=== PATIENT | female | born 1995 | race Caucasian/White ===

== ENCOUNTER 2022-06-29 11:01 | Emergency (ER) | payer OTHER ==
[~2022-06-29] VITALS: Ht 170.2 cm; Wt 74.4 kg
[2022-06-29] MEDS ORDERED: METOCLOPRAMIDE INJ 10MG/2ML VIAL IV ONE (13:20)
[2022-06-29] MEDS ORDERED: NS 1,000 ML IV ONE (13:20)
[2022-06-29] MEDS ORDERED: diphenhydrAMINE 50MG/ML VIAL IV ONE (13:20)
[2022-06-29] MEDS ORDERED: KETOROLAC 30 MG/ML 1ML VIAL IV ONE (14:45)
[2022-06-29] MEDS ORDERED: RIZA10TA64 PO (15:59)
[2022-06-29 16:09] VITALS: BP 120/72
== END 2022-06-29 16:20 | disposition home or self-care (01) ==
LOC: M ED 11:01
DX: G43.909 Migraine, unspecified, not intractable, without status migrainosus (principal)
CPT/HCPCS: 70450; 84702; 96374; 96375; 99284; J1200; J1885; J2765

== ENCOUNTER → 2023-02-09 | Outpatient (CLI) | payer OTHER ==
[~2023-02-09] MED LIST: RIZA10TA64 PO
[2023-02-09 16:12] LABS: HEMOGLOBIN 12.8 g/dl (12.0-15.5); MEAN CORPUSCULAR HEMOGLOBIN 31.7 pg (27.0-33.0); MEAN CORPUSCULAR HGB CONC 34.6 g/dl (32.0-36.5); MEAN CORPUSCULAR VOLUME 91.6 fl (80.0-96.0); PLATELET COUNT, AUTOMATED 197 10^3/uL (150-450); RED BLOOD COUNT 4.04 10^6/uL (4.00-5.40); WHITE BLOOD COUNT 8.5 10^3/uL (4.0-10.0)
[2023-02-09 17:29] LABS: CHLAMYDIA DNA AMPLIFICATION NEGATIVE (NEGATIVE); GC DNA AMPLIFICATION NEGATIVE (NEGATIVE)
[2023-02-09 17:50] LABS: HIV 1&2 SCREEN NEGATIVE (NEGATIVE)
[2023-02-09 17:56] LABS: HEPATITIS C VIRUS ABY INDEX 0.06 INDEX (<0.8)
== END ==
LOC: M PLALAB 14:32
PROVIDERS: ATTEND Advanced Practice Midwife
DX: Z34.01 Encounter for supervision of normal first pregnancy, first trimester (principal)

== ENCOUNTER → 2023-04-04 | Outpatient (CLI) | payer OTHER | LOC: M RAD 09:35 | PROVIDERS: ATTEND Advanced Practice Midwife | DX: Z34.02 Encounter for supervision of normal first pregnancy, second trimester (principal) ==

== ENCOUNTER → 2023-05-18 | Outpatient (CLI) | payer OTHER | LOC: M WHC 08:36 | PROVIDERS: ATTEND Advanced Practice Midwife | DX: Z34.02 Encounter for supervision of normal first pregnancy, second trimester (principal) ==

== ENCOUNTER → 2023-05-25 | Outpatient (CLI) | payer OTHER ==
[2023-05-25 19:00] LABS: HEMATOCRIT 33.8 % (36.0-47.0); HEMOGLOBIN 11.7 g/dl (12.0-15.5); MEAN CORPUSCULAR HEMOGLOBIN 32.4 pg (27.0-33.0); MEAN CORPUSCULAR HGB CONC 34.6 g/dl (32.0-36.5); MEAN CORPUSCULAR VOLUME 93.6 fl (80.0-96.0); PLATELET COUNT, AUTOMATED 170 10^3/uL (150-450); RED BLOOD COUNT 3.61 10^6/uL (4.00-5.40); WHITE BLOOD COUNT 10.3 10^3/uL (4.0-10.0)
== END ==
LOC: M PLALAB 14:39
PROVIDERS: ATTEND Advanced Practice Midwife
DX: Z34.02 Encounter for supervision of normal first pregnancy, second trimester (principal)

== ENCOUNTER → 2023-08-02 | Outpatient (REF) | payer OTHER | LOC: M SFHCWAGY 14:58 | PROVIDERS: ATTEND Obstetrics & Gynecology | DX: Z36.89 Encounter for other specified antenatal screening (principal); Z3A.36 36 weeks gestation of pregnancy ==

== ENCOUNTER 2023-08-23 07:36 | Inpatient (IN) | payer OTHER ==
[2023-08-23] VITALS (26 sets, daily range): BP systolic 109–153; BP diastolic 59–95; O2SAT 99
[~2023-08-23] VITALS: Ht 170.2 cm; Wt 94.7 kg
[2023-08-23] MEDS ORDERED: PRENTAB9 PO (08:00)
[2023-08-23] MEDS ORDERED: ACET325C5 PO (08:00)
[2023-08-23] MEDS ORDERED: HOME MED LIST COMPLETE! XX SCH (08:15)
[2023-08-23 08:42] LABS: HEMATOCRIT 35.2 % (36.0-47.0); HEMOGLOBIN 12.4 g/dl (12.0-15.5); MEAN CORPUSCULAR HEMOGLOBIN 29.9 pg (27.0-33.0); MEAN CORPUSCULAR HGB CONC 35.2 g/dl (32.0-36.5); MEAN CORPUSCULAR VOLUME 84.8 fl (80.0-96.0); PLATELET COUNT, AUTOMATED 244 10^3/uL (150-450); RED BLOOD COUNT 4.15 10^6/uL (4.00-5.40); WHITE BLOOD COUNT 14.6 10^3/uL (4.0-10.0)
[2023-08-23] MEDS ORDERED: LACTATED RINGER'S 1000 ML IV STA (09:11)
[2023-08-23] MEDS ORDERED: METHYLERGONOVINE MALEATE 0.2MG/ML 1ML VIAL IM PRN (09:15)
[2023-08-23] MEDS ORDERED: TRANEXAMIC ACID INJection 1,000 MG in NS 100 ML IV PRN (09:15)
[2023-08-23] MEDS ORDERED: OXYTOCIN DRIP 30 UNITS in IV 1 EA IV PRN (09:15)
[2023-08-23] MEDS ORDERED: OXYTOCIN INJ 10UNITS/ML 1ML VIAL IM PRN (09:15)
[2023-08-23] MEDS ORDERED: LIDOCAINE 1% MDV 20ML VIAL INFIL PRN (09:15)
[2023-08-23] MEDS ORDERED: CARBOPROST TROMETHAMINE 250 MCG/ML AMP IM PRN (09:15)
[2023-08-23 09:40] LABS: HEPATITIS C VIRUS ABY INDEX < 0.02 INDEX (<0.8)
[2023-08-23] MEDS ORDERED: OXYTOCIN DRIP 30 UNITS in IV 1 EA IV SCH (10:55)
[2023-08-23] MEDS ORDERED: LR 1,000 ML IV SCH (10:55)
[2023-08-23] MEDS ORDERED: ePHEDrine SULFATE 25 MG/5 ML(5MG/ML) SYRINGE IVP PRN (14:25)
[2023-08-23] MEDS ORDERED: ONDANSETRON 4MG 2ML VIAL IV PRN (14:25)
[2023-08-23] MEDS ORDERED: LR 500 ML IV PRN (14:25)
[2023-08-23] MEDS ORDERED: diphenhydrAMINE 50MG/ML VIAL IV PRN (14:25)
[2023-08-23] MEDS ORDERED: FENTANYL/ROPIVACAINE/NACL BAG 100 ML EPIDURAL SCH (14:25)
[2023-08-23] MEDS ORDERED: NALOXONE INJ 0.4MG/1ML VIAL IV PRN (14:25)
[2023-08-23] MEDS ORDERED: EPIDURAL/PCA KEYS XX PRN (14:25)
[2023-08-23] MEDS ORDERED: IBUPROFEN 600MG TAB PO PRN (18:05)
[2023-08-23] MEDS ORDERED: METHYLERGONOVINE MALEATE 0.2 MG TAB PO PRN (18:05)
[2023-08-23] MEDS ORDERED: ACETAMINOPHEN TAB 650MG DOSE (2X325MG) PO PRN (18:05)
[2023-08-23] MEDS ORDERED: DOCUSATE SODIUM 100MG CAPSULE PO PRN (18:05)
[2023-08-23] MEDS ORDERED: ACETAMINOPHEN 500 MG TAB PO PRN (18:05)
[2023-08-23] MEDS ORDERED: RHO(D) IMMUNE GLOBULIN/MALTOSE 500MCG(2500IU)/2.2ML VIAL (WINRHO) IM SCH (18:05)
[2023-08-23] MEDS: DIBUCAINE 1% OINTMENT 30GM TOP PRN (21:46)
[2023-08-24 06:00] VITALS: BP 104/62; O2SAT 96
[2023-08-24] MEDS: PRENATAL VITAMINS CHEWABLE TABLET PO SCH (08:25)
[2023-08-24] MEDS: IBUPROFEN 800 MG TAB PO PRN (08:26)
[2023-08-24 18:00] VITALS: BP 124/72; O2SAT 98
[2023-08-25 06:00] VITALS: BP 115/64; O2SAT 99
[2023-08-25] MEDS: MEASLES,MUMPS,RUBELLA VACCINE INJ (MMR-II) SC.IMMUN ONE (18:10)
== END 2023-08-25 18:20 | disposition home or self-care (01) | DRG 807 ==
LOC: M LDO 07:36 → M LDI 08:44 → M OBS 19:49
PROVIDERS: ADMIT Advanced Practice Midwife; ATTEND Advanced Practice Midwife
PROC: 10E0XZZ Delivery of Products of Conception, External Approach (ICD-10-PCS; principal; 2023-08-23)
PROC: 0KQM0ZZ Repair Perineum Muscle, Open Approach (ICD-10-PCS; 2023-08-23)
DX: O70.1 Second degree perineal laceration during delivery (principal); Z37.0 Single live birth; Z3A.39 39 weeks gestation of pregnancy